=== PATIENT | female | born 1995 | race American Indian/Alaskan Native ===

== ENCOUNTER 2017-01-20 11:57 | Emergency (ER) | payer OTHER ==
[2017-01-20 12:05] VITALS: BMI 21.6
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
--- NOTE | 2017-01-20 13:42 | RAD ---
PROCEDURE: Radiographs of the Lumbar Spine. HISTORY: pain COMPARISON: None available. FINDINGS: BONES: Alignment appears satisfactory. No listhesis. No acute displaced fracture identified. DISC SPACES: Unremarkable. OTHER FINDINGS: None. IMPRESSION: No acute displaced fracture or subluxation identified.
[2017-01-20 13:58] VITALS: BP 107/67; PULSE 88; RESP 18; TEMP 97.9; O2SAT 98
== END 2017-01-20 13:55 | disposition home or self-care (01) ==
LOC: C.ER 11:57
DX: S16.1XXA Strain of muscle, fascia and tendon at neck level, initial encounter (principal); S33.5XXA Sprain of ligaments of lumbar spine, initial encounter; S09.90XA Unspecified injury of head, initial encounter; V78.6XXA Passenger on bus injured in noncollision transport accident in traffic accident, initial encounter; M79.605 Pain in left leg; M79.604 Pain in right leg